=== PATIENT | male | born 2000 | race Caucasian/White ===

== ENCOUNTER 2021-04-30 17:18 | Emergency (ER) | payer BC, MEDICAID, SELFPAY ==
[~2021-04-30] VITALS: Ht 188 cm; Wt 142.9 kg
[2021-04-30 17:18] VITALS: BP_SYST 179
[2021-04-30] MEDS ORDERED: CIPR500T5 PO (17:50)
--- NOTE | 2021-04-30 17:56 | NUR ---
Patient given written and verbal discharge instructions and verbalizes understanding. BOWEN VERAS MD discussed with patient the results and treatment provided. Patient in stable condition. ID arm band removed. Rx of CIPRO given. Patient educated on pain management and to follow up with PMD. Pain Scale 0. Opportunity for questions provided and answered. Medication side effect fact sheet provided.
[2021-04-30 17:57] VITALS: BP_SYST 122
== END 2021-04-30 17:56 | disposition home or self-care (01) ==
LOC: SED 17:18
DX: K92.1 Melena (principal); I10 Essential (primary) hypertension; E11.9 Type 2 diabetes mellitus without complications; Z79.899 Other long term (current) drug therapy
CPT/HCPCS: 99283

== ENCOUNTER 2021-07-03 08:46 | Emergency (ER) | payer BC, MEDICAID ==
[~2021-07-03] VITALS: Ht 190.5 cm; Wt 142.0 kg
[~2021-07-03 08:46] MED LIST: CIPR500T5 PO
[2021-07-03 08:58] VITALS: BP_SYST 143
--- NOTE | 2021-07-03 09:00 | NUR ---
RECEIVED PT IN BED #2, FROM HOME WITH CC OF PALPITATIONS, ANXIETY, AND PANIC ATTACKS INTERMITTENTLY THE PAST 3 WEEKS. PT IS STABLE, NAD, VSS, WAS RECENTLY SEEN IN A DIFFERENT ER FOR SAME COMPLAINTS, PRESCRIBED HYDROXIZINE, AND MEDICATIONS HAVE NOT BEEN EFFECTIVE.
--- NOTE | 2021-07-03 09:05 | NUR ---
ED MD AT BEDSIDE FOR ASSESSMENTS.
[2021-07-03] MEDS ORDERED: LORazepam 1 MG TABLET PO ONE (09:15)
[2021-07-03] MEDS ORDERED: LORA-259 PO (09:30)
--- NOTE | 2021-07-03 09:44 | NUR ---
Patient given written and verbal discharge instructions and verbalizes understanding. ER MD discussed with patient the results and treatment provided. Patient in stable condition. ID arm band removed. Rx of given. Patient educated on pain management and to follow up with PMD. Opportunity for questions provided and answered. Medication side effect fact sheet provided.
== END 2021-07-03 09:44 | disposition home or self-care (01) ==
LOC: SED 08:46
DX: F41.9 Anxiety disorder, unspecified (principal); Z79.899 Other long term (current) drug therapy
CPT/HCPCS: 93005; 99283